=== PATIENT | male | born 1965 | race Caucasian/White ===

== ENCOUNTER 2024-06-20 16:32 | Emergency (ER) | payer BC ==
[2024-06-20] MEDS ORDERED: Fluorescein Opthalmic Strip ONE (17:30)
[2024-06-20] MEDS ORDERED: Proparacaine 0.5% Opth 15 ML BOT ONE (17:31)
== END 2024-06-20 18:27 | disposition home or self-care (01) ==
LOC: CSHERS 16:32
DX: S05.01XA Injury of conjunctiva and corneal abrasion without foreign body, right eye, initial encounter (principal); W22.8XXA Striking against or struck by other objects, initial encounter; Y93.89 Activity, other specified; Y92.69 Other specified industrial and construction area as the place of occurrence of the external cause
CPT/HCPCS: 99283